=== PATIENT | female | born 1995 | race Caucasian/White ===

== ENCOUNTER 2019-05-24 13:07 | Emergency (ER) | payer OTHER ==
[~2019-05-24] VITALS: Ht 167.6 cm; Wt 49.9 kg
[2019-05-24 13:07] VITALS: BP_SYST 121
[2019-05-24] MEDS ORDERED: NACL 0.9% 1,000 ML IV ONE (13:45)
[2019-05-24 14:08] LABS: HEMATOCRIT 39.1 % (36-48); HEMOGLOBIN 13.1 g/dL (12.0-16.0); MEAN CORPUSCULAR HEMOGLOBIN 31 pg (27-31); MEAN CORPUSCULAR HGB CONC 34 % (32-36); MEAN CORPUSCULAR VOLUME 92 fL (79.0-98.0); PLATELET COUNT (AUTO) 368 K/uL (130-430); RED BLOOD CELL COUNT(AUTO) 4.25 MIL/uL (4.2-6.2); RED CELL DISTRIBUTION WIDTH 12.8 % (9.0-15.0); WHITE BLOOD COUNT (AUTO) 17.1 K/uL (4.8-10.8)
[2019-05-24] MEDS ORDERED: KETOROLAC TROMETHAMINE 30 MG VIAL IVP ONE (14:15)
[2019-05-24 14:19] LABS: STREPTOCOCCUS A SCREEN (RAPID) POSITIVE (NEGATIVE)
[2019-05-24 14:32] LABS: INFLUENZA A&B ANTIGEN SCREEN NEGATIVE FOR A & B (NEGATIVE)
[2019-05-24 14:41] LABS: ATYPICAL LYMPHOCYTES % 12 % (0-0); BAND % (MANUAL) 3 % (0-6); BASOPHILS % (MANUAL) 0 % (0-2); EOSINOPHILS % (MANUAL) 0 % (0-7); LYMPHOCYTES % (MANUAL) 32 % (20-46); MONOCYTES % (MANUAL) 9 % (0-11)
[2019-05-24] MEDS ORDERED: PENICILLIN G BENZATHINE 1.2 MMU/2 ML SYR IM ONE (15:00)
[2019-05-24 15:21] VITALS: BP_SYST 122
== END 2019-05-24 15:21 | disposition home or self-care (01) ==
LOC: SED 13:07
DX: J02.0 Streptococcal pharyngitis (principal); B27.90 Infectious mononucleosis, unspecified without complication
CPT/HCPCS: 36415; 81002; 81025; 83605; 85007; 85027; 86308; 86403; 86710; 87040; 96372; 96374; 99284; J0561; J1885; J7030

== ENCOUNTER 2019-05-26 11:34 | Emergency (ER) | payer OTHER ==
[~2019-05-26] VITALS: Ht 160 cm; Wt 49.9 kg
[2019-05-26 11:34] VITALS: BP_SYST 116
[2019-05-26] MEDS ORDERED: NACL 0.9% 1,000 ML IV ONE (12:00)
[2019-05-26] MEDS ORDERED: MORPHINE 2 MG/ML INJ. SYRINGE IVP ONE ×2 (12:00→14:15)
[2019-05-26] MEDS ORDERED: LIDOCAINE VISCOUS 2%, 15 ML UDC MM ONE (12:00)
[2019-05-26] MEDS ORDERED: PENICILLIN V POTASSIUM 250 MG TABLET PO ONE (12:00)
[2019-05-26 14:30] VITALS: BP_SYST 116
== END 2019-05-26 14:30 | disposition home or self-care (01) ==
LOC: SED 11:34
DX: B27.90 Infectious mononucleosis, unspecified without complication (principal); J02.0 Streptococcal pharyngitis
CPT/HCPCS: 96374; 96376; 99284; J2001; J2270; J7030

== ENCOUNTER 2020-12-05 13:43 | Emergency (ER) | payer OTHER, SELFPAY ==
[~2020-12-05] VITALS: Ht 165.1 cm; Wt 54.4 kg
[2020-12-05 13:48] VITALS: BP_SYST 125
[2020-12-05 14:41] LABS: MONOTEST NEGATIVE (NEGATIVE); STREPTOCOCCUS A SCREEN (RAPID) NEGATIVE (NEGATIVE)
[2020-12-05] MEDS ORDERED: IBUP-1969 PO (14:53)
[2020-12-05] MEDS ORDERED: PSEU30TA36 PO (14:53)
[2020-12-05 15:05] VITALS: BP_SYST 125
== END 2020-12-05 15:06 | disposition home or self-care (01) ==
LOC: SED 13:43
DX: J02.9 Acute pharyngitis, unspecified (principal); Z79.899 Other long term (current) drug therapy; Z20.822 Contact with and (suspected) exposure to COVID-19
CPT/HCPCS: 36415; 86308-TC; 86403; 87081; 99283

== ENCOUNTER 2021-01-28 20:53 | Emergency (ER) | payer OTHER, SELFPAY ==
[~2021-01-28] VITALS: Ht 167.6 cm; Wt 53.1 kg
[~2021-01-28 20:53] MED LIST: IBUP-1969 PO; PSEU30TA36 PO
--- NOTE | 2021-01-28 21:00 | NUR ---
Patient triaged and placed in waiting room. VSS and patient appears in no acute distress at this time. Accompanied by MOTHER, awaiting available bed, and MD notified of need for MSE.
[2021-01-28 21:03] VITALS: BP_SYST 122
--- NOTE | 2021-01-28 21:10 | NUR ---
Patient wheeled to bed 8 for evaluation
--- NOTE | 2021-01-28 21:31 | NUR ---
Returned from radiology, back to [facility].
--- NOTE | 2021-01-28 21:44 | NUR ---
ER Dr. Yu at bedside examining patient.
--- NOTE | 2021-01-28 21:57 | NUR ---
Patient given written and verbal discharge instructions and verbalizes understanding. ER MD discussed with patient the results and treatment provided. Patient in stable condition. ID arm band removed. No Rx given. Patient educated on pain management and to follow up with PMD. Pain Scale 1/10. Opportunity for questions provided and answered.
== END 2021-01-28 21:57 | disposition home or self-care (01) ==
LOC: SED 20:53
DX: S93.402A Sprain of unspecified ligament of left ankle, initial encounter (principal); Z79.899 Other long term (current) drug therapy; W18.39XA Other fall on same level, initial encounter; Y93.89 Activity, other specified; Y92.89 Other specified places as the place of occurrence of the external cause; Y99.8 Other external cause status
CPT/HCPCS: 99284

== ENCOUNTER 2021-03-15 15:38 | Emergency (ER) | payer OTHER, SELFPAY ==
[~2021-03-15] VITALS: Ht 165.1 cm; Wt 56.7 kg
[2021-03-15 15:38] VITALS: BP_SYST 118
--- NOTE | 2021-03-15 15:38 | NUR ---
pt. came in with c/o MARQUES, body stiffness, sorethroat, and non productive cough for 2 days, concerned might of been exposed to covid on
--- NOTE | 2021-03-15 15:40 | NUR ---
ER in triage examining patient.
[2021-03-15 15:55] VITALS: BP_SYST 118
--- NOTE | 2021-03-15 15:55 | NUR ---
Patient given written and verbal discharge instructions and verbalizes understanding. ER Dr. East discussed with patient the results and treatment provided. Patient in stable condition. ID arm band removed. Patient educated on pain management and to follow up with PMD. Pain Scale 2. Opportunity for questions provided and answered.
== END 2021-03-15 15:55 | disposition home or self-care (01) ==
LOC: SED 15:38
DX: U07.1 COVID-19 (principal); Z79.899 Other long term (current) drug therapy
CPT/HCPCS: 87426; 99283; C9803; U0003

== ENCOUNTER 2021-07-24 10:44 | Emergency (ER) | payer OTHER ==
[~2021-07-24] VITALS: Ht 167.6 cm; Wt 52.2 kg
[2021-07-24 10:45] VITALS: BP_SYST 114
[2021-07-24] MEDS ORDERED: KETOROLAC TROMETHAMINE 30 MG VIAL IVP ONE (11:00)
[2021-07-24] MEDS ORDERED: DEXAMETHASONE SOD PHOSPHATE 4 MG/ML VIAL IVP ONE (11:00)
[2021-07-24] MEDS ORDERED: DEXAMETHASONE SOD PHOSPHATE 10 MG/ML VIAL ONE (11:02)
[2021-07-24] MEDS ORDERED: ACETAMINOPHEN 500 MG TABLET PO ONE (11:15)
[2021-07-24 11:46] LABS: BASOPHILS % (AUTO) 0.4 % (0.0-2.0); EOSINOPHILS % (AUTO) 0.4 % (0.0-4.0); HEMATOCRIT 40.9 % (36-48); HEMOGLOBIN 14.1 g/dL (12.0-16.0); LYMPHOCYTES % (AUTO) 10.4 % (20.5-51.5); MEAN CORPUSCULAR HEMOGLOBIN 31 pg (27-31); MEAN CORPUSCULAR HGB CONC 34 % (32-36); MEAN CORPUSCULAR VOLUME 89 fL (79.0-98.0); MONOCYTES # (AUTO) 0.8 K/uL (0.0-1.0); MONOCYTES % (AUTO) 8.4 % (1.7-9.3); NEUTROPHILS % (AUTO) 80.4 % (40.0-70.0); PLATELET COUNT (AUTO) 271 K/uL (130-430); RED CELL DISTRIBUTION WIDTH 12.3 % (9.0-15.0)
[2021-07-24 11:58] LABS: STREPTOCOCCUS A SCREEN (RAPID) NEGATIVE (NEGATIVE)
[2021-07-24 12:02] LABS: CALCIUM 8.2 mg/dL (8.4-11.0); CREATININE 0.84 mg/dL (0.55-1.30); POTASSIUM 3.6 mmol/L (3.5-5.1)
[2021-07-24 12:05] LABS: MONOTEST NEGATIVE (NEGATIVE)
[2021-07-24] MEDS ORDERED: TRAM50TA2 PO (12:05)
[2021-07-24] MEDS ORDERED: IBUP-1969 PO (12:05)
[2021-07-24 12:08] LABS: ALBUMIN 3.8 g/dL (3.4-4.8); TOTAL BILIRUBIN 0.6 mg/dL (0.0-1.0)
[2021-07-24 12:10] LABS: BILIRUBIN,URINE NEGATIVE (NEGATIVE); BLOOD, URINE NEGATIVE (NEGATIVE); CLARITY/URINE CLEAR (CLEAR); COLOR,URINE YELLOW (YELLOW); GLUCOSE,URINE NEGATIVE (NEGATIVE); KETONES,URINE 1+ (NEGATIVE); LEUKOCYTE ESTERASE ,URINE NEGATIVE (NEGATIVE); NITRITE, URINE NEGATIVE (NEGATIVE); PROTEIN URINE TRACE (NEGATIVE); UROBILINOGEN,URINE 0.2 (0.2-1.0)
[2021-07-24] MEDS ORDERED: CLIN-142 PO (12:36)
[2021-07-24] MEDS ORDERED: CLINDAMYCIN HCL 150 MG CAPSULE ONE (12:37)
[2021-07-24 12:40] VITALS: BP_SYST 114
[2021-07-24] MEDS ORDERED: CLINDAMYCIN HCL 150 MG CAPSULE PO ONE (12:45)
== END 2021-07-24 12:40 | disposition home or self-care (01) ==
LOC: SED 10:44
DX: J02.9 Acute pharyngitis, unspecified (principal); Z20.822 Contact with and (suspected) exposure to COVID-19
CPT/HCPCS: 36415; 80053; 81003; 83605; 85025; 86308; 86403; 87040; 87081; 87086; 87426; 87804 ×2; 93005; 96374; 96375; 99284; J1100; J1885